=== PATIENT | female | born 1965 | race Caucasian/White ===

== ENCOUNTER → 2019-12-02 | Day surgery (SDC) | payer OTHER ==
--- NOTE | 2019-12-05 11:09 | OP ---
DATE OF OPERATION: 12/02/2019 PREOPERATIVE DIAGNOSIS: Left breast mass 10 to 12 o'clock, retroareolar. POSTOPERATIVE DIAGNOSIS: Left breast mass 10 to 12 o'clock, retroareolar. PROCDURE: Left ultrasound-guided core biopsy with clip placement. ANESTHESIA: Local. ATTENDING SURGEON: Juan Ramon Florian MD ESTIMATED BLOOD LOSS: Minimal. COMPLICATIONS: None. PROCEDURE: Patient was made aware of the risks and benefits of the procedure and consented. She was placed in the supine position. Under sterile conditions with 1% lidocaine for local anesthesia, a small paige was made in the skin. Using a 10-gauge suction biopsy device via lateral approach under ultrasound guidance multiple cores were obtained and submitted to Pathology. Likewise, under ultrasound guidance a U-shaped clip was placed into the biopsy region. Well tolerated by patient. Steri-Strip and a sterile bandage were applied. We will contact her with the results. JUAN RAMON FLORIAN M.D. [id number]
--- NOTE | 2019-12-20 11:42 | PATH ---
Surgical Pathology Report Patient Name: MARLY RUSSELL [facility]. Rec. #: [id number] /Age/Gender: 1965 (Age: 54) / F Account: [id number] Location: [facility] RADIOLOGY U Taken: 12/02/2019 Received: 12/02/2019 Reported: 12/06/2019 Physicians: Juan Ramon Florian M.D. Specimen(s) Received LEFT BREAST 11-12:00 RA Clinical History Nonpalpable lesion Ultrasound findings: Probably benign Final Diagnosis BREAST, LEFT, 11-12:00 RETROAREOLAR, CORE BIOPSY: BENIGN BREAST TISSUE SHOWING HISTIOCYTIC AND GIANT CELL REACTION WITH DENSE FIBROSIS, POSSIBLY REPRESENTING CYST RUPTURE AND REACTION. Electronically Signed Amy Pepe M.D. Gross Description Received in formalin labeled "left breast 11-12:00 retroareolar," is a 1.3 x 1.0 x 0.2 cm aggregate of multiple staley-yellow, irregular to cylindrical portions of fibroadipose tissue. The formalin is filtered and the specimen is entirely submitted in one cassette. Time to formalin fixation: < 1 minute Total formalin fixation time: Approximately 6 hours. DL/12/02/2019 saudi/12/02/2019
== END | disposition home or self-care (01) ==
LOC: FRADUS-SUR 12:27
PROVIDERS: ATTEND Surgery Surgical Oncology
PROC: 0HBU3ZX Excision of Left Breast, Percutaneous Approach, Diagnostic (ICD-10-PCS; principal; 2019-12-02)
DX: N60.12 Diffuse cystic mastopathy of left breast (principal); N63.22 Unspecified lump in the left breast, upper inner quadrant
CPT/HCPCS: 19083; 87899; 88305-TC; A4648